=== PATIENT | female | born 1960 | race Caucasian/White ===

== ENCOUNTER 2018-04-11 13:26 | Emergency (ER) | payer BC, OTHER ==
[~2018-04-11] VITALS: Ht 170.2 cm; Wt 65.8 kg
[2018-04-11 14:24] LABS: HEMATOCRIT 44.8 % (36.0-46.0); HEMOGLOBIN 15.6 G/DL (11.9-15.5); MCH 31.7 PG (29.0-34.0); MCHC 34.8 G/DL (30.0-36.0); MCV 91.1 FL (83-99); PLATELET COUNT 248 K/uL (156-360); RBC DIS.WIDTH-CV 11.8 % (11.8-14.6); RBC DIS.WIDTH-SD 39.3 % (39-53); RED BLOOD COUNT 4.92 M/uL (3.80-5.20); WHITE BLOOD COUNT 8.1 K/uL (4.1-10.2)
[2018-04-11 14:33] LABS: CHLORIDE 105 mEq/L (99-109); POTASSIUM 4.6 mEq/L (3.7-5.4); SODIUM 142 mEq/L (136-147)
[2018-04-11 14:35] LABS: GLUCOSE 115 mg/dL (70-99)
[2018-04-11 14:39] LABS: CREATININE 0.8 mg/dL (0.6-1.3); GFR ESTIMATE (CALCULATED) > 59 mL/min/
[2018-04-11 14:40] LABS: UREA NITROGEN (BUN) 13 mg/dL (9-23)
[2018-04-11 14:46] LABS: TROP-I INTERPRETATION NEGATIVE; TROPONIN-I < 0.01 ng/mL (0.0-0.30)
[2018-04-11] MEDS ORDERED: ZITHROMAX250 MG PO (16:07)
[2018-04-11 19:14] VITALS: BP 125/89
== END 2018-04-11 19:37 | disposition home or self-care (01) ==
LOC: EME 13:26
PROVIDERS: Emergency Medicine Emergency Medical Services
DX: J18.9 Pneumonia, unspecified organism (principal); R11.2 Nausea with vomiting, unspecified; E86.0 Dehydration; R00.0 Tachycardia, unspecified; Z86.711 Personal history of pulmonary embolism; Z89.611 Acquired absence of right leg above knee; Z90.49 Acquired absence of other specified parts of digestive tract; Z88.8 Allergy status to other drugs, medicaments and biological substances
CPT/HCPCS: 71275; 80048; 80048 91; 84484; 85027; 93005; 99281; 99285; J0780; J2270; J2405; J7030